=== PATIENT | female | born 1945 | race Caucasian/White ===

== ENCOUNTER → 2017-10-31 | Outpatient (CLI) | payer OTHER, MEDICARE | LOC: SBRMNEURO 20:00 | PROVIDERS: ATTEND Psychiatry & Neurology Sleep Medicine | DX: G47.31 Primary central sleep apnea (principal); G47.33 Obstructive sleep apnea (adult) (pediatric) ==

== ENCOUNTER → 2017-11-22 | Outpatient (CLI) | payer OTHER, MEDICARE | LOC: SBRMNEURO 21:00 | PROVIDERS: ATTEND Psychiatry & Neurology Sleep Medicine | DX: G47.31 Primary central sleep apnea (principal) ==

== ENCOUNTER → 2017-12-21 | Outpatient (CLI) | payer OTHER, MEDICARE | LOC: GIMAGING 16:42 | PROVIDERS: ATTEND Internal Medicine Geriatric Medicine | DX: M79.671 Pain in right foot (principal); M25.571 Pain in right ankle and joints of right foot; S92.354A Nondisplaced fracture of fifth metatarsal bone, right foot, initial encounter for closed fracture; M77.31 Calcaneal spur, right foot; M85.471 Solitary bone cyst, right ankle and foot | CPT/HCPCS: 73630-PO ==